=== PATIENT | female | born 1995 | race Caucasian/White ===

== ENCOUNTER 2017-02-27 10:46 | Emergency (ER) | payer BC, OTHER ==
[~2017-02-27] VITALS: Ht 165.1 cm; Wt 53.0 kg
[~2017-02-27 10:46] MED LIST: BCPILLS PO; HYDROXYZINE PAMOATE PO; SERT50TA PO
[2017-02-27 10:49] VITALS: TEMP 36.9; Ht 165.1 cm; Wt 53.0 kg
[2017-02-27] MEDS ORDERED: ONDANSETRON 4MG OD TAB SL STA (11:18)
[2017-02-27] MEDS ORDERED: LIDOCAINE/EPINEPHRINE 1% 20 ML VIAL INFIL ONE (11:30)
[2017-02-27] MEDS ORDERED: CEPHALEXIN MONOHYDRATE 250 MG CAP PO STA (11:36)
[2017-02-27] MEDS ORDERED: DOXYCYCLINE HYCLATE 100 MG CAP PO STA (11:36)
--- NOTE | 2017-02-27 11:40 | EMERGENCY ROOM VISIT NOTE ---
ED Visit Note First contact with patient: 11:01 CHIEF COMPLAINT: Infection of the right thigh HISTORY OF PRESENT ILLNESS: This 21-year-old female patient presents to the emergency department 4 days after they noticed a hard, red, tender area in the right thigh. It is slowly getting larger, more painful and tender. No fever, or loss of appetite. The patient does report chills and nausea which began yesterday. There has been no drainage from the area. There was no injury to the area preceding the infection. They rate the pain as burning and 2/10. Tetanus shot is up to date. The patient was seen at [facility] yesterday for the cellulitis. She was started on Bactrim at that time. A samish was drawn outlining the cellulitis, and the patient was encouraged to follow up if the infection continued to spread. The patient took one dose of Bactrim yesterday, however awoke this morning not feeling well and began experiencing chills and nausea. She was unable to tolerate a second dose of Bactrim. The patient does have a history of abscesses and cellulitis similar to this, and has successfully taken doxycycline in the past. She has never had them drained. She states they have always drained on their own. The patient has never had a culture of the infection. The patient is not diabetic. REVIEW OF SYSTEMS: A 10 system review of systems was performed with positives and pertinent negatives listed in the history of present illness. All other systems were reviewed and are negative. ALLERGIES: Penicillin MEDICATIONS: Sprintec PMH: Celiac disease SOCIAL HISTORY: The patient is a [employer] student. She lives locally with her roommate. Patient denies drug, alcohol, tobacco use. PHYSICAL EXAM: Vital Signs: Reviewed Nurse's notes, vital signs stable. GENERAL : This is a 21 yo white female, no acute distress, non toxic in appearance, well-developed well-nourished. SKIN: There is an erythematous indurated area on the right anterior thigh which measures about 4 cm in diameter. It is fluctuant but there is no pointing or drainage. There is a zone of inflammation around it but no lymphangitis. Capillary refill less than 2 seconds. MUSCULOSKELETAL: There is no limitation of the range of motion of the right lower extremity. EMERGENCY DEPARTMENT COURSE: I examined the patient. She was given 4 mg sublingual Zofran for nausea. When the nausea subsided, the procedure was initiated. Verbal consent was obtained to perform the procedure. After saline and Betadine cleansing and 3 mL of 1% lidocaine with epinephrine anesthesia, the abscess was incised with a number 11 scalpel blade. A moderate amount of purulent material was released with more expressed by pressure. A swab was obtained for culture. The abscess cavity was further probed with a needle local [employer] flatbed truck [employer] and the deep pocket expressed. The abscess cavity was then copiously irrigated with sterile saline under pressure. The area was then packed with bacitracin soaked packing. The area was cleaned with sterile saline and dressed with bacitracin and a bulky bandage. The patient tolerated the procedure well. The patient was given the first dose of doxycycline and Keflex here in the emergency department. The patient was discharged home in stable condition. I attest that I have personally reviewed the patient's current medication list. Patient was found to have normal blood pressure on screening and does not require follow-up. DIFFERENTIAL DIAGNOSIS: Abscess, cellulitis, insect bite, sepsis, malignancy, and others DIAGNOSIS: Abscess of the right anterior thigh. Current/Historical Medications Scheduled Control Pills ( Control Pills), 1 TAB PO DAILY Cephalexin Monohydrate (Keflex), 500 MG PO QID Doxycycline Hyclate (Vibramycin), 100 MG PO BID Scheduled PRN Ondasetron Odt (Zofran Odt), 4 MG SL Q6H PRN for Nausea [Hydroxyzine Pamoate], 10 MG PO BID PRN for Anxiety Allergies Coded Allergies: Penicillins (Unverified Allergy, Unknown, RASH, 02/27/17) Vital Signs Date Time Temp Pulse Resp B/P (MAP) Pulse Ox O2 Delivery O2 Flow Rate FiO2 02/27/17 12:57 88 18 120/67 99 02/27/17 12:35 88 18 120/67 99 Room Air 02/27/17 10:49 36.9 105 16 127/87 100 Medications Administered Medications (Trade) Dose Ordered Sig/Gallo Route Start Time Stop Time Status Last Admin Dose Admin Ondansetron HCl (Zofran Odt) 4 mg NOW STAT SL 02/27/17 11:18 02/27/17 11:28 DC 02/27/17 11:34 4 MG Doxycycline Hyclate (Vibramycin Cap) 100 mg ONE STAT PO 02/27/17 11:36 11/13/17 11:37 DC 02/27/17 12:33 100 MG Cephalexin Monohydrate (Keflex Cap) 500 mg NOW STAT PO 02/27/17 11:36 02/27/17 11:37 DC 02/27/17 12:33 500 MG Departure Information Impression Primary Impression: Abscess of right thigh Dispostion Home / Self-Care Condition GOOD Prescriptions Ondasetron Odt (ZOFRAN ODT) 4 Mg Tab 4 MG SL Q6H Y for Nausea, #6 TAB Prov: Carmella Garces PA-C 02/27/17 Doxycycline Hyclate (VIBRAMYCIN) 100 Mg Cap 100 MG PO BID for 7 Days, #14 CAP Prov: Carmella Garces PA-C 02/27/17 Cephalexin Monohydrate (Keflex) 500 Mg Cap 500 MG PO QID for 7 Days, #28 CAP Prov: Carmella Garces PA-C 02/27/17 Referrals No Doctor, Assigned (PCP) Patient Instructions ED Abscess [facility], [facility] Additional Instructions You were seen in the emergency department today for a right thigh abscess. This was successfully drained and packing was placed. Please do not pull on the packing. Leave it in place and avoid getting the wound wet. You were prescribed Keflex and doxycycline to be taken as directed. This is an antibiotic. All antibiotics have the potential to cause diarrhea. Stop this medication and contact a medical provider if you were to develop any significant adverse side effects including: wheezing, shortness of breath, passing out, vomiting, or a diffuse rash. Always take antibiotics as directed and COMPLETE the ENTIRE course regardless of the improvement of your symptoms. You may want to consider taking these medications with a small meal or snack, as they can upset her stomach. Take Zofran as prescribed for Nausea. You may consider using crutches if needed to avoid weight-bearing. Return to the emergency department tomorrow for packing removal and recheck. Return to the emergency department sooner for spreading redness (past the border which was drawn on the skin), fever, chills, significant puslike drainage , or other concerning symptoms. School Instructions Return To School: 2 days
[2017-02-27] MEDS ORDERED: DOXY100C PO (12:38)
[2017-02-27] MEDS ORDERED: CEPH500C PO (12:38)
[2017-02-27] MEDS ORDERED: ONDA4TAB10 SL (12:56)
[2017-02-27 12:57] VITALS: BP 120/67; PULSE 88; O2SAT 99
[2017-02-28] MEDS ORDERED: ATR10 PO (12:28)
== END 2017-02-27 12:58 | disposition home or self-care (01) ==
LOC: C.EDB 10:47 → C.EDC 12:58
DX: L02.415 Cutaneous abscess of right lower limb (principal); K90.0 Celiac disease; Z79.3 Long term (current) use of hormonal contraceptives; Z88.0 Allergy status to penicillin

== ENCOUNTER 2017-02-28 12:01 | Emergency (ER) | payer BC ==
[~2017-02-28] VITALS: Ht 165.1 cm; Wt 53.1 kg
[~2017-02-28 12:01] MED LIST changes: +CEPH500C PO; +DOXY100C PO; +ONDA4TAB10 SL; -SERT50TA PO
[2017-02-28 12:05] VITALS: TEMP 36.5; Ht 165.1 cm; Wt 53.1 kg
[2017-02-28] MEDS ORDERED: ATR10 PO (12:28)
--- NOTE | 2017-02-28 12:56 | EMERGENCY ROOM VISIT NOTE ---
ED Visit Note First contact with patient: 12:39 CHIEF COMPLAINT: Packing removal, wound re-check HISTORY OF PRESENT ILLNESS: This 21 year old female patient presents to the emergency department, ambulatory, for packing removal of an abscess which I drained yesterday. Previous care outlined has been followed without difficulty. The patient states the pain has subsided significantly and she is feeling much better overall. She states while the redness has improved, she did notice a slight amount of darker coloration move out of the borders which were drawn yesterday. She states the warmth is better and she does feel that there is significant improvement since she was seen here yesterday. The patient denies fever, chills, nausea, vomiting, worsening redness or pain, warmth of the area, purulent drainage, or other concerning symptoms. REVIEW OF SYSTEMS: A 6 system review of systems was completed with positives and pertinent negatives listed in the HPI. ALLERGIES: PCN MEDICATIONS: Keflex, Doxycycline, OCP, Zofran, Hydroxyzine PMH: Anxiety PHYSICAL EXAM: Vital Signs reviewed, see Nurse's notes. Patient is afebrile, vital signs stable. GENERAL: This is a 21-year-old white female, awake, alert, well appearing, no acute distress SKIN: Packing is still in place in the abscess on the right thigh. There is no continued purulent discharge. The redness has significantly decreased. The wound is healing well. NEURO: No sensory or motor deficits noted. EMERGENCY DEPARTMENT COURSE AND DECISION MAKING: I examined the patient. The packing was removed from the abscess. The wound is healing well. A very small amount of packing was replaced into the wound to continue to help with healing. The patient was advised to remove this packing tomorrow. The patient will continue to monitor for worsening of her symptoms. She will follow-up this week with [facility]. Discharge instructions reviewed. Discharged in stable condition. I attest that I have personally reviewed the patient's current medication list. Patient was found to have normal blood pressure on screening and does not require follow-up. DIFFERENTIAL DIAGNOSIS: Abscess, cellulitis, sepsis, and others DIAGNOSIS: Packing removal/replacement, abscess of right thigh - recheck Current/Historical Medications Scheduled Control Pills ( Control Pills), 1 TAB PO DAILY Cephalexin Monohydrate (Keflex), 500 MG PO QID Doxycycline Hyclate (Vibramycin), 100 MG PO BID Scheduled PRN Hydroxyzine HCl (Hydroxyzine HCl), 10 MG PO BID PRN for Anxiety Ondasetron Odt (Zofran Odt), 4 MG SL Q6H PRN for Nausea Allergies Coded Allergies: Penicillins (Unverified Allergy, Unknown, RASH, 02/28/17) Vital Signs Date Time Temp Pulse Resp B/P (MAP) Pulse Ox O2 Delivery O2 Flow Rate FiO2 02/28/17 13:09 66 16 116/69 99 02/28/17 12:05 36.5 65 20 107/69 98 Room Air Departure Information Impression Primary Impression: Abscess of right thigh Additional Impressions: Encounter for wound re-check Change or removal of wound packing Dispostion Home / Self-Care Condition GOOD Referrals No Doctor, Assigned (PCP) [facility] Patient Instructions ED Abscess [facility] Additional Instructions You were seen in the emergency department today for abscess recheck and packing removal. The infection does appear to have improved significantly. A small amount of packing was placed in the wound just to keep it open. Please remove this tomorrow. Proper wound care is essential for adequate wound healing and infection prevention. You can shower and clean the wound with soap and water. Do not scour over the wound, pat dry with a towel. Do not submerse the wound (i.e. bathe or dish wash) until the wound has fully healed. You can use an antibiotic ointment with a dressing over the wound for the next 3-4 days. After this time you may leave the wound dry and open to the air. Please follow up later this week with [facility] for wound recheck. Return to the emergency department for worsening redness, puslike drainage, significant pain, fever, chills, significant fatigue, body aches, or other concerning symptoms. Problem Qualifiers
[2017-02-28 13:09] VITALS: BP 116/69; PULSE 66; O2SAT 99
== END 2017-02-28 13:11 | disposition home or self-care (01) ==
LOC: C.EDB 12:02 → C.EDD 13:11
DX: Z48.01 Encounter for change or removal of surgical wound dressing (principal); L02.415 Cutaneous abscess of right lower limb; F41.9 Anxiety disorder, unspecified; Z79.899 Other long term (current) drug therapy; Z88.0 Allergy status to penicillin